=== PATIENT | female | born 1950 | race Caucasian/White ===

== ENCOUNTER → 2017-11-11 18:21 | Outpatient (CLI) | payer OTHER ==
[~2017-11-11 18:21] MED LIST: ORPH100T PO
== END | disposition home or self-care (01) ==
LOC: RAD 18:21
DX: M17.0 Bilateral primary osteoarthritis of knee (principal)

== ENCOUNTER 2022-05-03 14:26 | Outpatient (CLI) | payer OTHER | END 2022-05-03 14:29 | disposition home or self-care (01) | LOC: SONOGRAMA 14:26 | PROVIDERS: ATTEND Pathology Anatomic Pathology & Clinical Pathology | DX: D37.030 Neoplasm of uncertain behavior of the parotid salivary glands (principal) ==